=== PATIENT | female | born 1970 | race Caucasian/White ===

== ENCOUNTER → 2017-05-30 | Outpatient (CLI) | payer OTHER ==
[2017-05-30 10:02] LABS: CH 29.9; CHCM 31.7; HCT 46.1 % (34.0-46.0); HDW 2.28; HGB 14.8 gm/dL (11.4-16.0); MCH 30.5 pg (25.0-35.0); MCV 95.1 fL (80.0-100.0); Mean Platelet Volume 7.3; RBC 4.85 m/uL (3.80-5.40); RDW 14.1 % (11.5-15.5); WBC 8.5 k/uL (3.8-10.6)
[2017-05-30 11:08] LABS: ALT 23 U/L (9-52); AST 14 U/L (14-36); Alkaline Phosphatase 58 U/L (38-126); Anion Gap 8 mmol/L; Blood Urea Nitrogen 17 mg/dL (7-17); Calcium 9.2 mg/dL (8.4-10.2); Carbon Dioxide 24 mmol/L (22-30); Chloride 106 mmol/L (98-107); Cholesterol 219 mg/dL (<200); Glucose 102 mg/dL (74-99); HDL Cholesterol 50 mg/dL (40-60); Non-African American GFR(MDRD) >60 (>60 ml/min/1.73 sqM); Sodium 138 mmol/L (137-145); Total Bilirubin 0.4 mg/dL (0.2-1.3); Total Protein 6.8 g/dL (6.3-8.2)
== END | disposition home or self-care (01) ==
LOC: LABWHC1 09:46
PROVIDERS: ATTEND Nurse Practitioner Primary Care
DX: Z00.01 Encounter for general adult medical examination with abnormal findings (principal)
CPT/HCPCS: 36415; 80053; 80061; 82306; 84443; 85027

== ENCOUNTER → 2017-10-11 | Outpatient (CLI) | payer OTHER ==
[2017-10-11 09:57] LABS: Albumin 4.2 g/dL (3.5-5.0); Calcium 10.3 mg/dL (8.4-10.2); Potassium 4.4 mmol/L (3.5-5.1); Total Bilirubin 0.3 mg/dL (0.2-1.3); Total Protein 7.4 g/dL (6.3-8.2)
== END | disposition home or self-care (01) ==
LOC: LABWHC1 09:19
PROVIDERS: ATTEND Nurse Practitioner Primary Care
DX: E55.9 Vitamin D deficiency, unspecified (principal); E78.00 Pure hypercholesterolemia, unspecified
CPT/HCPCS: 36415; 80053; 80061; 82306

== ENCOUNTER → 2018-02-19 | Outpatient (CLI) | payer OTHER ==
[2018-02-19 13:30] LABS: Basophils # (A) 0.1 k/uL (0-0.2); Basophils % (A) 1 %; Eosinophils # (A) 0.1 k/uL (0-0.7); Eosinophils % (A) 1 %; HCT 45.1 % (34.0-46.0); HGB 14.5 gm/dL (11.4-16.0); Lymphocytes # (A) 1.7 k/uL (1.0-4.8); Lymphocytes % (A) 20 %; MCH 29.5 pg (25.0-35.0); MCHC 32.2 g/dL (31.0-37.0); MCV 91.7 fL (80.0-100.0); Mean Platelet Volume 6.7; Monocytes # (A) 0.4 k/uL (0-1.0); Monocytes % (A) 5 %; Neutrophils # (A) 6.2 k/uL (1.3-7.7); Neutrophils % (A) 72 %; Platelet Count 219 k/uL (150-450); RBC 4.92 m/uL (3.80-5.40); RDW 13.1 % (11.5-15.5); WBC 8.7 k/uL (3.8-10.6)
[2018-02-19 13:55] LABS: Albumin 3.8 g/dL (3.5-5.0); Calcium 9.4 mg/dL (8.4-10.2); Potassium 4.6 mmol/L (3.5-5.1); Total Bilirubin 0.4 mg/dL (0.2-1.3); Total Protein 6.7 g/dL (6.3-8.2)
== END | disposition home or self-care (01) ==
LOC: LABWHC1 12:46
PROVIDERS: ATTEND Nurse Practitioner Primary Care
DX: Z00.00 Encounter for general adult medical examination without abnormal findings (principal)
CPT/HCPCS: 36415; 80053; 80061; 82306; 84443; 85025

== ENCOUNTER → 2020-10-24 | Outpatient (CLI) | payer OTHER ==
[2020-10-24 13:45] VITALS: BP 115/65; PULSE 82; RESP 18; TEMP 98.1
--- NOTE | 2020-10-24 14:43 | P.HPOB ---
History of Present Illness H&P Date: 10/24/20 Chief Complaint: The patient is here for her routine gynecologic exam and ma mmogram. This is a 50-year-old 013 with an LMP of 1994. The patient is here to establish with this office. It has been about 1-1/2 years since her last pelvic exam. She is status post tubal ligation. She has been amenorrheic since her endometrial ablation in 1994. She has experienced some occasional mild hot flashes which are not very severe. She is without gynecologic complaints. She denies any vaginal bleeding. Review of Systems Weight has been stable. She denies respiratory or cardiac problems. GI: Occasional constipation. Past Medical History Additional Past Medical History / Comment(s): cerebral palsy, chronic back pain. 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 She has no other history of STDs. History of Any Multi-Drug Resistant Organisms: None Reported Past Surgical History: Orthopedic Surgery, Tubal Ligation, Uterine Ablation Additional Past Surgical History / Comment(s): Endometrial ablation in 1994. Colonoscopy 2020. Past Psychological History: Depression Smoking Status: Current every day smoker (1 pack per day) Past Alcohol Use History: None Reported Past Drug Use History: None Reported Additional History: She has been since 2018 and this is her second marriage. She is disabled. - Past Family History Mother Family Medical History: Hypertension, Myocardial Infarction ([place]) Father Family Medical History: Hypertension, Myocardial Infarction ([place]) Sister(s) Family Medical History: Cancer Additional Family Medical History / Comment(s): Breast cancer. Medications and Allergies Home Medications Medication Instructions Recorded Confirmed Type Aspirin 81 mg PO DAILY 08/11/15 10/24/20 History traZODone HCL [Desyrel] 100 mg PO HS 08/11/15 10/24/20 History Baclofen 10 mg PO TID 10/24/20 10/24/20 History Cholecalciferol (Vitamin D3) 125 mcg PO DAILY 10/24/20 10/24/20 History [Vitamin D3 (5000 Iu)] Naproxen 250 mg PO DAILY PRN 10/24/20 10/24/20 History Allergies Allergy/AdvReac Type Severity Reaction Status Date / Time No Known Allergies Allergy Verified 10/24/20 13:45 Exam Vital Signs Temp Pulse Resp BP Pulse Ox 10/24/20 13:40 98.1 F 82 18 115/65 100 Intake and Output 10/23/20 10/24/20 10/24/20 22:59 06:59 14:59 Other: Weight 48.534 kg Height 5 feet 0 inches, weight 107 pounds, BMI 20.9. This is a well-developed well-nourished white female who is alert and oriented times 3 in no acute distress. HEENT: She is edentulous. HEENT is otherwise within normal limits. NECK: Supple without mass or thyromegaly. CHEST AND LUNGS: Clear to auscultation. HEART: Regular rate and rhythm. BREASTS: Are without mass or discharge. AXILLARY EXAM: Negative for adenopathy. BACK: Negative for CVA tenderness. ABDOMEN: Soft, nontender, without palpable masses. PELVIC EXAM: Normal external genitalia with mild atrophy. Cervix and vagina appear normal with mild atrophy. There is no unusual discharge. There is no evidence of prolapse. The uterus is midposition, nongravid size and nontender. There are no palpable adnexal masses or tenderness. RECTAL EXAM: Rectovaginal exam is negative for mass or tenderness and is negative for occult blood. EXTREMITIES: Nontender. IMPRESSION: 1. 50-year-old perimenopausal female with normal gynecologic exam who has been amenorrheic since 1994 following her endometrial ablation. 2. Smoker. PLAN: 1. Pap smear cotest was performed. 2. Self breast awareness was discussed with the patient. 3. Screening mammogram will be done today. 4. Osteoporosis prevention was discussed. I have stressed the importance of adequate calcium, vitamin D and regular exercise. Recommended amounts of calcium and vitamin D were also discussed. 5. I have recommended quitting smoking. We have discussed many reasons why this is important. 6. She was advised to return in one year for her annual well woman exam.
--- NOTE | 2020-10-25 09:30 | MM ---
Reason for exam: screening (asymptomatic). Last mammogram was performed 13 years and 1 month ago. History: Family history of breast cancer in aunt. Physical Findings: A clinical breast exam by your physician is recommended on an annual basis and results should be correlated with mammographic findings. MG Screening Mammo w CAD Bilateral CC and MLO view(s) were taken. Prior study comparison: September 14, 2007, bilateral digital screening mammogram. The breast tissue is heterogeneously dense. This may lower the sensitivity of mammography. There is no discrete abnormality. No significant changes when compared with prior studies. ASSESSMENT: Negative, BI-RAD 1 RECOMMENDATION: Routine screening mammogram of both breasts in 1 year.
== END | disposition home or self-care (01) ==
LOC: WWCWWP 13:28
PROVIDERS: ATTEND Obstetrics & Gynecology
DX: Z12.31 Encounter for screening mammogram for malignant neoplasm of breast (principal)
CPT/HCPCS: 77067

== ENCOUNTER → 2021-01-25 | Outpatient (CLI) | payer OTHER ==
[2021-01-26 01:57] LABS: Hemoglobin A1C 5.3 % (4.0-6.0)
== END | disposition home or self-care (01) ==
LOC: LABWHC1 14:38
PROVIDERS: ATTEND Family Medicine
DX: Z79.899 Other long term (current) drug therapy (principal)
CPT/HCPCS: 36415; 83036

== ENCOUNTER 2021-04-09 12:07 | Day surgery (SDC) | payer OTHER ==
[2021-04-04 12:11] VITALS: BMI 21.7
[~2021-04-09 12:07] MED LIST: LACTATED RINGERS 1,000 ML IV SCH; LIDOCAINE 1% (10MG/ML) FOR IV START INTRADERMA PRN
[2021-04-09] MEDS ORDERED: LACTATED RINGERS 1,000 ML IV ONE (12:38)
[2021-04-09 12:47] VITALS: TEMP 97.5
[2021-04-09] MEDS ORDERED: PROPOFOL 10 MG/ML 20 ML VIAL IV ONE (14:35)
--- NOTE | 2021-04-09 14:45 | P.GSHP ---
History of Present Illness H&P Date: 04/09/21 Chief Complaint: GERD This is a 51-year-old female who presents today for EGD. She's had issues with GERD. 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 history of STDs. History of Any Multi-Drug Resistant Organisms: None Reported Past Surgical History: Orthopedic Surgery, Tubal Ligation, Uterine Ablation Additional Past Surgical History / Comment(s): Endometrial ablation in 1994. Colonoscopy 2020. MULTIPLE SX CHILD FOR CEREBRAL PALSY Past Anesthesia/Blood Transfusion Reactions: Postoperative Nausea & Vomiting (PONV) Smoking Status: Current every day smoker - Past Family History Mother Family Medical History: Hypertension, Myocardial Infarction ([place]) Father Family Medical History: Hypertension, Myocardial Infarction ([place]) Sister(s) Family Medical History: Cancer Additional Family Medical History / Comment(s): Breast cancer. Medications and Allergies Home Medications Medication Instructions Recorded Confirmed Type Aspirin 81 mg PO DAILY 08/11/15 04/04/21 History traZODone HCL [Desyrel] 100 mg PO HS 08/11/15 04/04/21 History Baclofen 10 mg PO TID 10/24/20 04/04/21 History Cholecalciferol (Vitamin D3) 125 mcg PO DAILY 10/24/20 04/04/21 History [Vitamin D3 (5000 Iu)] Docusate [Colace] 100 mg PO DAILY 04/04/21 04/04/21 History Ezetimibe [Zetia] 10 mg PO DAILY 04/04/21 04/04/21 History Fexofenadine/Pseudoephedrine 1 tab PO DAILY 04/04/21 04/04/21 History [Christine-D 24 Hour Tablet] Naproxen [Naprosyn] 500 mg PO Q12HR 04/04/21 04/04/21 History Omeprazole 20 mg PO DAILY 04/04/21 04/04/21 History Allergies Allergy/AdvReac Type Severity Reaction Status Date / Time No Known Allergies Allergy Verified 04/04/21 11:59 Surgical - Exam Vital Signs Temp Pulse Resp BP Pulse Ox 97.5 F L 82 18 122/62 99 04/09/21 12:46 04/09/21 12:46 04/09/21 12:46 04/09/21 12:46 04/09/21 12:46 - General well developed, well nourished, no distress - Eyes PERRL - ENT normal pinna - Neck no masses - Respiratory normal expansion - Cardiovascular Rhythm: regular - Abdomen Abdomen: soft Assessment and Plan Assessment: GERD. We'll perform EGD.
--- NOTE | 2021-04-09 14:47 | P.OP ---
Date of Procedure: 04/09/21 Preoperative Diagnosis: GERD Postoperative Diagnosis: Gastritis Sliding hiatal hernia Mild esophagitis Procedure(s) Performed: EGD Anesthesia: MAC Surgeon: Yusuf Palacio Pathology: other (Antrum, esophagus) Condition: stable Disposition: PACU Description of Procedure: Patient's placed on the endoscopy table in the lateral position. She received IV sedation. The gastroscope placed oropharynx past esophagus and stomach. Scope was placed through the pylorus. The first and second portion of the du odenum appeared normal. Scope was then brought back the antrum this was mildly inflamed. A biopsies performed. The scope was unretroflexed and remainder of the stomach appeared normal. The patient had a small sliding hiatal hernia. The junction was at 38 cm.. The distal esophagus appeared minimally inflamed a biopsies performed. The proximal esophagus appeared normal. The scope was withdrawn for patient.
[2021-04-09 14:51] VITALS: RESP 16
[2021-04-09 15:07] VITALS: BP 143/85; PULSE 72
== END 2021-04-09 15:47 | disposition home or self-care (01) ==
LOC: ORWHC2ENDO 12:07
PROVIDERS: ATTEND Surgery
DX: K29.70 Gastritis, unspecified, without bleeding (principal); K44.9 Diaphragmatic hernia without obstruction or gangrene; K21.00 Gastro-esophageal reflux disease with esophagitis, without bleeding; G80.9 Cerebral palsy, unspecified; F17.200 Nicotine dependence, unspecified, uncomplicated; E78.5 Hyperlipidemia, unspecified; Z79.1 Long term (current) use of non-steroidal anti-inflammatories (NSAID); Z79.82 Long term (current) use of aspirin; Z80.3 Family history of malignant neoplasm of breast; Z82.49 Family history of ischemic heart disease and other diseases of the circulatory system; Z79.899 Other long term (current) drug therapy
CPT/HCPCS: 43239; 81025; J2704; 88305

== ENCOUNTER → 2021-05-30 | Outpatient (CLI) | payer OTHER ==
[2021-05-30 14:29] LABS: Basophils # (A) 0.1 k/uL (0-0.2); Basophils % (A) 1 %; Eosinophils # (A) 0.1 k/uL (0-0.7); Eosinophils % (A) 1 %; HGB 15.1 gm/dL (11.4-16.0); Lymphocytes % (A) 19 %; MCH 31.3 pg (25.0-35.0); MCHC 32.9 g/dL (31.0-37.0); MCV 95.3 fL (80.0-100.0); Mean Platelet Volume 7.2; Monocytes # (A) 0.5 k/uL (0-1.0); Monocytes % (A) 4 %; Neutrophils # (A) 7.8 k/uL (1.3-7.7); Neutrophils % (A) 73 %; Platelet Count 250 k/uL (150-450); RBC 4.83 m/uL (3.80-5.40); RDW 13.2 % (11.5-15.5); WBC 10.6 k/uL (3.8-10.6)
== END | disposition home or self-care (01) ==
LOC: LABPAT 12:53
PROVIDERS: ATTEND Surgery
DX: Z01.812 Encounter for preprocedural laboratory examination (principal); K21.00 Gastro-esophageal reflux disease with esophagitis, without bleeding
CPT/HCPCS: 36415; 85025; 93005

== ENCOUNTER 2021-06-05 09:38 | Day surgery (SDC) | payer OTHER ==
[~2021-06-05 09:38] MED LIST changes: +ACETAMINOPHEN TAB 500 MG TAB PO PRN; +DEXAMETHASONE SOD PHOSPHATE 4 MG/ML 1 ML VIAL IV ONE; +HEPARIN SODIUM,PORCINE/PF 5,000 UNIT/0.5 ML SYRINGE SQ PRN; +HYDROmorphone 0.5 MG/0.5 ML SYRINGE IVP PRN; -LACTATED RINGERS 1,000 ML IV SCH; -LIDOCAINE 1% (10MG/ML) FOR IV START INTRADERMA PRN; +ONDANSETRON 4 MG/2 ML VIAL IVP ONE
[2021-06-05] MEDS: LACTATED RINGERS 1,000 ML IV SCH ×2 (10:11→13:41)
--- NOTE | 2021-06-05 10:32 | P.GSHP ---
History of Present Illness H&P Date: 06/05/21 Chief Complaint: GERD, dysphagia This is a 51-year-old female who's had complaints of GERD and dysphagia. Patient's workup found have evidence of a sliding hiatal hernia. Patient presents today for laparoscopic repair with Mg fundal plication. Patient's aware the risks of surgery including recurrent GERD and dysphagia symptoms. Past Medical History Past Medical History: GERD/Reflux, Hyperlipidemia, Musculoskeletal Disorder, Respiratory Disorder Additional Past Medical History / Comment(s): cerebral palsy, chronic back pain, balance issues. Freq Bronchitis. 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 History of Any Multi-Drug Resistant Organisms: None Reported Past Surgical History: Orthopedic Surgery, Tubal Ligation, Uterine Ablation Additional Past Surgical History / Comment(s): Endometrial ablation in 1994. Colonoscopy 2020. MULTIPLE SX CHILD FOR CEREBRAL PALSY. EGD Past Anesthesia/Blood Transfusion Reactions: Motion Sickness, Postoperative Nausea & Vomiting (PONV) Smoking Status: Current every day smoker - Past Family History Mother Family Medical History: Hypertension, Myocardial Infarction ([place]) Father Family Medical History: Hypertension, Myocardial Infarction ([place]) Sister(s) Family Medical History: Cancer Additional Family Medical History / Comment(s): Breast cancer. Medications and Allergies Home Medications Medication Instructions Recorded Confirmed Type Aspirin 81 mg PO DAILY 08/11/15 05/29/21 History traZODone HCL [Desyrel] 100 mg PO HS 08/11/15 05/29/21 History Baclofen 10 mg PO TID 10/24/20 05/29/21 History Cholecalciferol (Vitamin D3) 125 mcg PO DAILY 10/24/20 05/29/21 History [Vitamin D3 (5000 Iu)] Docusate [Colace] 100 mg PO DAILY 04/04/21 05/29/21 History Ezetimibe [Zetia] 10 mg PO DAILY 04/04/21 05/29/21 History Fexofenadine/Pseudoephedrine 1 tab PO DAILY 04/04/21 05/29/21 History [Christine-D 24 Hour Tablet] Naproxen [Naprosyn] 500 mg PO BID 04/04/21 05/29/21 History Omeprazole 20 mg PO DAILY 04/04/21 05/29/21 History Albuterol Inhaler [Ventolin Hfa 2 puff INHALATION RT-QID PRN 05/29/21 05/29/21 History Inhaler] Metoclopramide [Reglan] 5 mg PO BID 05/29/21 05/29/21 History Allergies Allergy/AdvReac Type Severity Reaction Status Date / Time adhesive tape Allergy Rash/Hives Verified 06/05/21 10:04 Surgical - Exam Vital Signs Temp Pulse Resp BP Pulse Ox 96.7 F L 93 16 117/82 99 06/05/21 09:57 06/05/21 09:57 06/05/21 09:57 06/05/21 09:57 06/05/21 09:57 - General well developed, well nourished, no distress - Eyes PERRL - ENT normal pinna - Neck no masses - Respiratory normal expansion - Cardiovascular Rhythm: regular - Abdomen Abdomen: soft, non tender Assessment and Plan Assessment: GERD, dysphagia. We'll perform laparoscopic Mg fundal plication.
[2021-06-05] MEDS ORDERED: LIDOCAINE 1% INJ 10MG/ML (20 ML MDV) ONE (10:51)
[2021-06-05] MEDS ORDERED: GLYCOPYRROLATE 0.2 MG/ML 2 ML VIAL ONE (10:51)
[2021-06-05] MEDS ORDERED: ROCURONIUM 10 MG/ML (5 ML VIAL) IV ONE (10:51)
[2021-06-05] MEDS ORDERED: MIDAZOLAM 2 MG/2 ML VIAL ONE (10:51)
[2021-06-05] MEDS ORDERED: PROPOFOL 10 MG/ML 20 ML VIAL IV ONE (10:51)
[2021-06-05] MEDS ORDERED: NEOSTIGMINE 1 MG/ML 10 ML VIAL ONE (10:51)
[2021-06-05] MEDS ORDERED: LABETALOL 5 MG/ML VIAL MDV ONE (10:51)
[2021-06-05] MEDS ORDERED: fentaNYL (PF) 50 MCG/ML 2 ML AMP ONE (10:51)
[2021-06-05] MEDS ORDERED: BUPIVACAIN-EPI 0.25%-1:200,000 30 ML VIAL SQ ONE (11:31)
[2021-06-05] MEDS ORDERED: ONDANSETRON 4 MG/2 ML VIAL IVP PRN (11:59)
[2021-06-05] MEDS ORDERED: HYDROmorphone 1 MG/ML 1 ML SYRINGE IVP PRN (11:59)
--- NOTE | 2021-06-05 11:59 | P.OP ---
Date of Procedure: 06/05/21 Preoperative Diagnosis: GERD, dysphagia Postoperative Diagnosis: GERD Dysphagia Sliding hiatal hernia Procedure(s) Performed: Laparoscopic Mg fundal plication Transversus abdominis plane block Anesthesia: NICO Surgeon: Vitaliy Rios Estimated Blood Loss (ml): 5 Pathology: none sent Condition: stable Disposition: PACU Description of Procedure: The patient was placed on the operating table in the supine position. The patient received general anesthesia. And was placed in dorsal lithotomy position. The patient was prepped and draped in the usual sterile fashion. The skin incision sites were anesthetized with 1% local Xylocaine. The skin was incised in the left periumbilical area and then using a blade less 5 mm trocar under direct visualization panel cavity was entered. After adequate insufflation the laparoscope was then placed into the peritoneal cavity. Next a 5 mm trochars placed in the right epigastric position. Another 5 millimeter trocar the right lateral position. Another 5 millimeter trocar in the left lateral position a 5 mm trocar is placed in the left epigastric position. And then the initial 5 mm trocar was exchanged for a 10 mm trocar. A transversus abdominis plane block was performed using local Xylocaine. This was performed in 4 quadrants. The left lateral lobe liver was retracted. The hernia was seen. The crural defect was then dissected using the Harmonic scissors device. A 360 crural dissection was performed the esophagus stomach was reduced back into the peritoneal Cavity. The crural defect was then closed using 2-0 Ethibond suture. Next the fundus of the stomach was mobilized using the Procious scissors device. and then a 58-Kyrgyz bougie dilator was placed oropharynx passed into the esophagus and stomach the fundal plication wrap was then performed by grasping the fundus posteriorly and bringing it around the esophagus and stomach fundoplication was then performed using 2-0 Ethibond suture. Care was taken that the fundal location rested over top of the intra-abdominal esophagus. There was no injury seen to the stomach or esophagus. The dilator was then withdrawn. The abdomen was irrigated there is no bleeding seen. The trochars were then withdrawn and then skin incision sites were closed using 3-0 Monocryl suture Steri-Strips are applied. Patient thought procedure well and sent to recovery room in stable condition.
[2021-06-05] MEDS: D5-0.45% NACL WITH KCL 20MEQ/L 1,000 ML IV SCH (16:48)
[2021-06-05] MEDS ORDERED: ALBUTEROL NEBULIZED 2.5 MG/3 ML INHALATION PRN (18:51)
[2021-06-05] MEDS: PANTOPRAZOLE 40 MG/10 ML VIAL IVP SCH (20:22)
--- NOTE | 2021-06-06 00:02 | CONS ---
CONSULTATION This 51-year-old white female is status post Mg procedure. Sleepy, lethargic, having no chest pain or shortness of breath. History of GERD, dysphagia, respiratory disorder, musculoskeletal disorder, dyslipidemia. SURGERIES: Orthopedic surgery, tubal ligation. FAMILY HISTORY: Mother with myocardial infarction and dad with myocardial infarction. Sister with breast cancer. HOME MEDICINES: See list. ALLERGIES: NEGATIVE. REVIEW OF SYMPTOMS: Fourteen-point review of systems negative. ASSESSMENT: Status post Mg. Medically stable at this time. Resume home medicines for dyslipidemia and possibly inhalers. Prognosis guarded. MMODL / IJN: [id number] /
[2021-06-06] MEDS: D5-0.45% NACL WITH KCL 20MEQ/L 1,000 ML IV SCH ×2 (03:29→11:16)
--- NOTE | 2021-06-06 08:58 | FL ---
Single contrast esophagram EXAMINATION TYPE: FL esophagus cervic/pharynx DATE OF EXAM: 06/06/2021 8:53 AM COMPARISON: NONE CLINICAL HISTORY: Status post Chris fundoplication The patient ingested contrast without difficulty or delay. Noted are changes of Chris fundoplicatio n. There is no evidence for leak or obstruction. Small amount of residual contrast within the distal esophagus. IMPRESSION: Post-surgical change of Chris fundoplication without evidence for leak or obstruction.
[2021-06-06] MEDS ORDERED: ENOXAPARIN 40 MG/0.4 ML SYRINGE SQ SCH (09:00)
[2021-06-06] MEDS ORDERED: EZETIMIBE 10 MG TAB PO SCH (09:00)
[2021-06-06] MEDS: PANTOPRAZOLE 40 MG/10 ML VIAL IVP SCH (11:17)
[2021-06-06] MEDS ORDERED: HYDROcodone/APAP 5-325MG 1 EACH TAB PO PRN (12:53)
[2021-06-06 13:14] LABS: Basophils # (A) 0.1 k/uL (0-0.2); Basophils % (A) 1 %; Eosinophils # (A) 0.1 k/uL (0-0.7); Eosinophils % (A) 1 %; HCT 39.2 % (34.0-46.0); HGB 13.1 gm/dL (11.4-16.0); Lymphocytes # (A) 2.9 k/uL (1.0-4.8); Lymphocytes % (A) 26 %; MCH 30.7 pg (25.0-35.0); MCHC 33.5 g/dL (31.0-37.0); MCV 91.7 fL (80.0-100.0); Mean Platelet Volume 7.2; Monocytes # (A) 0.5 k/uL (0-1.0); Monocytes % (A) 5 %; Neutrophils # (A) 7.3 k/uL (1.3-7.7); Neutrophils % (A) 66 %; Platelet Count 270 k/uL (150-450); RBC 4.28 m/uL (3.80-5.40); WBC 11.1 k/uL (3.8-10.6)
[2021-06-06 13:31] LABS: African American GFR (CKD) >90 (>60 ml/min/1.73 sqM); Anion Gap 4 mmol/L; Blood Urea Nitrogen 10 mg/dL (7-17); Calcium 9.3 mg/dL (8.4-10.2); Carbon Dioxide 29 mmol/L (22-30); Chloride 103 mmol/L (98-107); Glucose 112 mg/dL (74-99); Non-African American GFR(CKD) >90 (>60 ml/min/1.73 sqM); Potassium 4.3 mmol/L (3.5-5.1); Sodium 136 mmol/L (137-145)
[2021-06-06 13:43] VITALS: BMI 22.4
[2021-06-06 14:33] VITALS: BP 151/80; PULSE 77; RESP 18; TEMP 97.8
--- NOTE | 2021-06-06 15:26 | P.DS ---
Providers Expected date of discharge: 06/06/21 Attending physician: Yusuf Palacio Consults: 06/05/21 11:59 Consult Physician Routine Consulting Provider: Javier Dillard Consult Reason/Comments: med manage Do you want consulting provider notified?: Yes Primary care physician: Javier Dillard Hospital Course: Discharge diagnosis 1. GERD 2. Dysphagia 3. Sliding hiatal hernia 4. Leukocytosis reactive secondary to steroids Hospital course This is a 51-year-old female who's had complaints of GERD and dysphagia. Patient's workup found have evidence of a sliding hiatal hernia. Patient is status post laparoscopic Mg fundoplication. She tolerated surgery well. Upper GI shows no evidence of leak or obstruction. She denies any difficulty swallowing. She's tolerating her Mg clear liquid diet. She is having flatus. Her pain is controlled. She has been up and ambulating. She is afebrile. She is stable for discharge. Incision sites are clean dry and intact. Please refer to chart for any further details. Physician Manager Of Investigations note has been reviewed by physician. Signing provider agrees with the documented findings, assessment, and plan of care. Patient Condition at Discharge: Stable Plan - Discharge Summary Discharge Rx Participant: Yes New Discharge Prescriptions: New Acetaminophen Tab [Tylenol Tab] 650 mg PO Q4H PRN #30 tablet PRN Reason: Pain Continue Aspirin 81 mg PO DAILY traZODone HCL [Desyrel] 100 mg PO HS Baclofen 10 mg PO TID Ezetimibe [Zetia] 10 mg PO DAILY Omeprazole 20 mg PO DAILY Metoclopramide [Reglan] 5 mg PO BID Albuterol Inhaler [Ventolin Hfa Inhaler] 2 puff INHALATION RT-QID PRN PRN Reason: Shortness Of Breath Cholecalciferol (Vitamin D3) [Vitamin D3 (5000 Iu)] 125 mcg PO DAILY Fexofenadine/Pseudoephedrine [Christine-D 24 Hour Tablet] 1 tab PO DAILY Docusate [Colace] 100 mg PO DAILY No Action Naproxen [Naprosyn] 500 mg PO BID Discharge Medication List Aspirin 81 mg PO DAILY 08/11/15 [History] traZODone HCL [Desyrel] 100 mg PO HS 08/11/15 [History] Baclofen 10 mg PO TID 10/24/20 [History] Cholecalciferol (Vitamin D3) [Vitamin D3 (5000 Iu)] 125 mcg PO DAILY 10/24/20 [History] Docusate [Colace] 100 mg PO DAILY 04/04/21 [History] Ezetimibe [Zetia] 10 mg PO DAILY 04/04/21 [History] Fexofenadine/Pseudoephedrine [Christine-D 24 Hour Tablet] 1 tab PO DAILY 04/04/21 [History] Naproxen [Naprosyn] 500 mg PO BID 04/04/21 [History] Omeprazole 20 mg PO DAILY 04/04/21 [History] Albuterol Inhaler [Ventolin Hfa Inhaler] 2 puff INHALATION RT-QID PRN 05/29/21 [History] Metoclopramide [Reglan] 5 mg PO BID 05/29/21 [History] Acetaminophen Tab [Tylenol Tab] 650 mg PO Q4H PRN #30 tablet 06/06/21 [Rx] Follow up Appointment(s)/Referral(s): Yusuf Palacio MD [STAFF PHYSICIAN] - 1 Week Activity/Diet/Wound Care/Special Instructions: No lifting over 10 pounds You may shower. No soaking or tub baths for 2 weeks Very light activity until you are reevaluated at your follow up appointment with your surgeon No straws or carbonated beverages hold on taking Naproxen until seen by surgeon in office Discharge Disposition: HOME SELF-CARE
[2021-06-06] MEDS ORDERED: traZODone HCL 100 MG TAB PO SCH (21:00)
== END 2021-06-06 16:25 | disposition home or self-care (01) ==
LOC: OR 09:38 → 6PED 13:52 → OR 06-06 16:25
PROVIDERS: ATTEND Surgery
DX: K21.9 Gastro-esophageal reflux disease without esophagitis (principal); R13.10 Dysphagia, unspecified; K44.9 Diaphragmatic hernia without obstruction or gangrene; Z20.822 Contact with and (suspected) exposure to COVID-19
CPT/HCPCS: 43280; 64486; 86900; 86901; 80048; 85025; 86850; 87635; 74210; J1100; J0690 ×2; J2405; J1650; J1170 ×2; C9113 ×2; Q9967; J1644

== ENCOUNTER → 2022-06-19 | Outpatient (CLI) | payer OTHER ==
[2022-06-20 01:00] LABS: Basophils # (A) 0.08 X 10*3/uL (0.00-0.10); Basophils % (A) 1.1 %; Eosinophils # (A) 0.11 X 10*3/uL (0.04-0.35); Eosinophils % (A) 1.5 %; HCT 45.7 % (37.2-46.3); HGB 14.8 g/dL (12.0-15.0); Immature Grans, Automated 0.4 %; Lymphocytes # (A) 2.29 X 10*3/uL (0.90-5.00); Lymphocytes % (A) 31.5 %; MCH 30.6 pg (27.0-32.0); MCHC 32.4 g/dL (32.0-37.0); MCV 94.4 fL (80.0-97.0); Mean Platelet Volume 9.9 fL (9.5-12.2); Monocytes # (A) 0.42 X 10*3/uL (0.20-1.00); Monocytes % (A) 5.8 %; NRBC Per 100 WBC 0 /100 WBCS (0.0-0.0); Neutrophils # (A) 4.34 X 10*3/uL (1.80-7.70); Neutrophils % (A) 59.7 %; Platelet Count 241 X 10*3/uL (140-440); RBC 4.84 X 10*6/uL (4.10-5.20); RDW 13.1 % (11.5-14.5); WBC 7.27 X 10*3/uL (4.50-10.00)
[2022-06-20 01:55] LABS: ALT 15 U/L (8-44); AST 14 U/L (13-35); African American GFR (CKD) 91.9 (60.0-200.0); Albumin 4.8 g/dL (3.8-4.9); Alkaline Phosphatase 60 U/L (41-126); BUN/Creat Ratio 29.94 Ratio (12.00-20.00); Blood Urea Nitrogen 25.6 mg/dL (9.0-27.0); Carbon Dioxide 29.8 mmol/L (20.0-27.5); Chloride 105 mmol/L (96-109); Chol/HDL Ratio 3.46 Ratio; Globulin 2.2 g/dL (1.6-3.3); Glucose 97 mg/dL (70-110); LDL Cholesterol,Calculated 160.2 mg/dL (0.0-131.0); Non-African American GFR(CKD) 79.3 (60.0-200.0); Potassium 4.3 mmol/L (3.5-5.5); Sodium 144 mmol/L (135-145); VLDL Calculation 15.44 mg/dL (5.00-40.00)
[2022-06-20 02:43] LABS: Microalbumin Creatinine Ratio <30 mg/g Creat (0-30)
== END | disposition home or self-care (01) ==
LOC: LABWHC1 14:14
PROVIDERS: ATTEND Family Medicine
DX: I10 Essential (primary) hypertension (principal); E11.9 Type 2 diabetes mellitus without complications; B89 Unspecified parasitic disease; Z79.899 Other long term (current) drug therapy
CPT/HCPCS: 36415; 80053; 80061; 82043; 82570; 83036; 84443; 85025